=== PATIENT | male | born 1965 | race Caucasian/White ===

== ENCOUNTER 2017-04-28 10:50 | Emergency (ER) | payer MEDICAID, OTHER ==
[~2017-04-28] VITALS: Ht 177.8 cm; Wt 74.4 kg
[~2017-04-28 10:50] MED LIST: ARIP15TA5 PO; TRAZ-289; [UNRECOGNIZED DRUG - REMARK]
[2017-04-28 11:02] VITALS: BP 101/75
--- NOTE | 2017-04-28 11:07 | NUR ---
Patient ambulated to bed 05.
--- NOTE | 2017-04-28 11:10 | NUR ---
51M BIB SELF C/O INTERMITTENT LEFT UPPER QUADRANT PAIN, NON-RADIATING, 0/10 AT THIS TIME; PT STATES "I'VE BEEN HAVING THIS PAIN FOR A WHILE, IT COMES AND GOES, BUT IT DOESN'T HURT RIGHT NOW"; ABDOMEN SOFT, NON-TENDER, ACTIVE BOWEL SOUNDS X 4 QUADRANTS; PT DENIES N/V/D AT THIS TIME; PT A&OX4, PERRLA, BL LUNG SOUNDS CLEAR, RR EVEN/UNLABORED, SKIN IS WARM/DRY/INTACT AT THIS TIME; PT RESTING IN BED W/ HOB ELEVATED AND IN LOWEST POSITION; POSITIONED FOR COMFORT; ER MD MADE AWARE OF STATUS. WILL CONTINUE TO MONITOR.
[2017-04-28] MEDS ORDERED: KETOROLAC 60 MG/2 ML VIAL IM ONE ×2 (11:45→11:57)
--- NOTE | 2017-04-28 11:58 | NUR ---
Dr. Rojas evaluating patient at bedside.
[2017-04-28 12:11] VITALS: BP 101/69
--- NOTE | 2017-04-28 12:11 | NUR ---
Patient discharged with v/s stable. Written and verbal after care instructions given and explained. Patient alert, oriented and verbalized understanding of instructions. Ambulatory with steady gait. All questions addressed prior to discharge. ID band removed. Patient advised to follow up with PMD. Rx of PRILOSEC 40MG given. Patient educated on indication of medication including possible reaction and side effects. Opportunity to ask questions provided and answered. GIVEN PATIENT HOMELESS RESOURCE PACKET; PT REFUSED RESOURCES, STATES " I DON'T NEED IT. YOU CAN JUST THROW IT AWAY"; ANSWERED ALL QUESTIONS BY PT REGARDING RESOURCE PACKET; PT STILL REFUSED.
--- NOTE | 2017-04-28 12:11 | NUR ---
Note kristenjoce in EDM - 04/28/17 at 1214 by MEDSS Patient discharged with v/s stable. Written and verbal after care instructions given and explained. Patient alert, oriented and verbalized understanding of instructions. Ambulatory with steady gait. All questions addressed prior to discharge. ID band removed. Patient advised to follow up with PMD. Rx of PRILOSEC 40MG given. Patient educated on indication of medication including possible reaction and side effects. Opportunity to ask questions provided and answered.
== END 2017-04-28 12:11 | disposition home or self-care (01) ==
LOC: MED 10:50
DX: R10.13 Epigastric pain (principal); K21.9 Gastro-esophageal reflux disease without esophagitis; I10 Essential (primary) hypertension; J44.9 Chronic obstructive pulmonary disease, unspecified; F17.200 Nicotine dependence, unspecified, uncomplicated
CPT/HCPCS: 96372; 99283; J1885

== ENCOUNTER 2017-12-04 16:51 | Emergency (ER) | payer OTHER, MEDICAID ==
[~2017-12-04] VITALS: Ht 175.3 cm; Wt 63.5 kg
[2017-12-04 17:21] VITALS: BP 83/49
--- NOTE | 2017-12-04 17:27 | NUR ---
BP RECHECK 88/50 ERMD MADE AWARE.
--- NOTE | 2017-12-04 17:30 | NUR ---
PATIENT BIBA DUE TO ABD. PAIN BUT ALREADY RESOLVED. PATIENT JUST HUNGRY. NO OTHER SYMPTOMS.VS FIELD BP 108/70,97% POX,HR 84,RESP. 16. DENIES HX: . DENIES N/V/D; SKIN IS PINK/WARM/DRY; AAOX4 WITH EVEN AND STEADY GAIT; LUNGS CLEAR BL; HR EVEN AND REGULAR; PT DENIES ANY FEVER, CP, SOB, OR COUGH AT THIS TIME; PATIENT STATES PAIN OF 0/10 AT THIS TIME;PATIENT POSITIONED FOR COMFORT; HOB ELEVATED; BEDRAILS UP X2; BED DOWN. ER MD MADE AWARE OF PT STATUS.
--- NOTE | 2017-12-04 18:30 | NUR ---
PT ATE 100 % OF HIS FOOD
[2017-12-04 19:29] VITALS: BP 88/50
--- NOTE | 2017-12-04 19:29 | NUR ---
REPORT GIVEN TO BESSY YA.
--- NOTE | 2017-12-04 20:55 | NUR ---
PATIENT LEFT WITHOUT BEING SEEN BY DR. LEWIS. NO FURTHER CARE PROVIDED FOR PATIENT.
== END 2017-12-04 20:55 | disposition left against medical advice (07) ==
LOC: MED 16:51
DX: R10.9 Unspecified abdominal pain (principal); Z53.21 Procedure and treatment not carried out due to patient leaving prior to being seen by health care provider

== ENCOUNTER 2017-12-05 01:35 | Emergency (ER) | payer OTHER, MEDICAID ==
[~2017-12-05] VITALS: Ht 175.3 cm; Wt 73.3 kg
[2017-12-05 01:41] VITALS: BP 110/75
--- NOTE | 2017-12-05 02:07 | NUR ---
52/M CAME IN W C/O "IM HUNGRY". DENIES N/V/D; SKIN IS PINK/WARM/DRY; AAOX4 WITH EVEN AND STEADY GAIT; LUNGS CLEAR BL; HR EVEN AND REGULAR; PT DENIES ANY FEVER, CP, SOB, OR COUGH AT THIS TIME; PATIENT STATES PAIN OF 0/10 AT THIS TIME; VSS; PATIENT POSITIONED FOR COMFORT; HOB ELEVATED; BEDRAILS UP X2; BED DOWN. ER MD MADE AWARE OF PT STATUS.
--- NOTE | 2017-12-05 02:07 | NUR ---
PT AMBULATED TO ER BED 11
--- NOTE | 2017-12-05 02:15 | NUR ---
PT GIVEN FOOD
--- NOTE | 2017-12-05 02:30 | NUR ---
PATIENT LEFT WITHOUT BEING SEEN BY DR. HACKETT. NO FURTHER CARE PROVIDED FOR PATIENT.
== END 2017-12-05 02:30 | disposition left against medical advice (07) ==
LOC: MED 01:35
DX: Z53.21 Procedure and treatment not carried out due to patient leaving prior to being seen by health care provider (principal)

== ENCOUNTER 2019-04-27 21:16 | Emergency (ER) | payer OTHER, MEDICAID ==
[~2019-04-27] VITALS: Ht 177.8 cm; Wt 72.6 kg
[~2019-04-27 21:16] MED LIST changes: -TRAZ-289; +TRAZ100T99
[2019-04-27 21:18] VITALS: BP 121/83
--- NOTE | 2019-04-27 21:18 | NUR ---
2109-- PT BIBA BLS TO ER BED 2
--- NOTE | 2019-04-27 21:19 | NUR ---
53 Y/O M BIBA WITH C/O GENERALIZED ABDOMINAL AND CHEST PAIN. AAOX4. 10 PAIN, INTERMINTENT. PT UNABLE TO GIVE EXACT LOCATION OF PAIN. PT STATED "ABDOMINAL PAIN HAS GONE ON FOR 2 YEARS." BOWEL SOUNDS PRESENT AND NORMOACTIVE. NO TENDERNESS TO TOUCH. BEDRAILS X2 UP. HOB ELEVATED FOR COMFORT. ERMD NOTIFIED. WILL CONTINUE TO TONY. Addendum: 04/27/19 at 2139 by [facility] 53 Y/O M BIBA WITH C/O GENERALIZED ABDOMINAL AND CHEST PAIN. AAOX4. 10 PAIN, INTERMINTENT. PT UNABLE TO GIVE EXACT LOCATION OF PAIN. PT STATED "ABDOMINAL PAIN HAS GONE ON FOR 2 YEARS." PT REPORTED TO EMS "HALF OF MY STOMACH HAS BEEN REMOVED AND I HAVE ULCERS FROM SWALLOWING METH." BOWEL SOUNDS PRESENT AND NORMOACTIVE. NO TENDERNESS TO TOUCH. BEDRAILS X2 UP. HOB ELEVATED FOR COMFORT. ERMD NOTIFIED. WILL CONTINUE TO RODOLFOIOR.
[2019-04-27] MEDS ORDERED: DICYCLOMINE HCL LIQUID 20 MG, ALUMINUM HYD/MAG/SIMETHICONE 30 ML, LIDOCAINE VISCOUS 2% ... PO ONE ×3 (21:30)
[2019-04-27] MEDS ORDERED: KETOROLAC 30 MG/ML VIAL IVP ONE (22:05)
[2019-04-27] MEDS ORDERED: NACL 0.9% 1,000 ML IV ONE (22:05)
[2019-04-27] MEDS ORDERED: ONDANSETRON 4 MG/2 ML VIAL IVP ONE (22:05)
[2019-04-27 22:30] LABS: BASOPHILS # (AUTO) 0.1 K/uL (0.00-0.22); BASOPHILS % (AUTO) 0.9 % (0.0-2.0); EOSINOPHILS # (AUTO) 0.1 K/uL (0-0.4); HEMATOCRIT 38.8 % (36-52); HEMOGLOBIN 12.2 g/dL (12.0-18.0); LYMPHOCYTES # (AUTO) 1.9 K/uL (2.0-11.5); LYMPHOCYTES % (AUTO) 14.7 % (20.5-51.1); MEAN CORPUSCULAR HEMOGLOBIN 23 pg (27-31); MEAN CORPUSCULAR HGB CONC 31 g/dL (33-37); MEAN CORPUSCULAR VOLUME 73.2 fL (80-94); MONOCYTES # (AUTO) 1.4 K/uL (0.8-1.0); MONOCYTES % (AUTO) 10.6 % (1.7-9.3); NEUTROPHILS # (AUTO) 9.6 K/uL (1.8-7.7); NEUTROPHILS % (AUTO) 72.8 % (42.2-75.2); PLATELET COUNT (AUTO) 202 K/uL (140-450); RED CELL DISTRIBUTION WIDTH 21.3 % (11.6-13.7); WHITE BLOOD COUNT (AUTO) 13.1 K/uL (4.8-10.8)
--- NOTE | 2019-04-27 22:30 | NUR ---
Pt awake. VSS. will continue to monitor.
[2019-04-27 22:39] LABS: ANION GAP 9.5 (8-16); CARBON DIOXIDE 35.9 mmol/L (21-32); CREATININE 1.1 mg/dL (0.7-1.3); POTASSIUM 3.4 mmol/L (3.5-5.1)
[2019-04-27 22:45] VITALS: BP 126/85
[2019-04-27 22:48] LABS: ALBUMIN 3.9 g/dL (3.4-5.0); TOTAL BILIRUBIN 0.2 mg/dL (0.0-1.0)
--- NOTE | 2019-04-27 23:30 | NUR ---
Pt provided meal and homeless resource packet.
--- NOTE | 2019-04-27 23:40 | NUR ---
Patient discharged with v/s stable. Written and verbal after care instructions given and explained. Patient alert, oriented and verbalized understanding of instructions. Ambulatory with steady gait. All questions addressed prior to discharge. ID band removed. Patient advised to follow up with PMD. Rx of Prilosec, zofran, and motrin given. Patient educated on indication of medication including possible reaction and side effects. Opportunity to ask questions provided and answered.
== END 2019-04-27 23:40 | disposition home or self-care (01) ==
LOC: MED 21:16
DX: R07.89 Other chest pain (principal); R10.9 Unspecified abdominal pain; R11.2 Nausea with vomiting, unspecified; F20.0 Paranoid schizophrenia; F17.200 Nicotine dependence, unspecified, uncomplicated; Z88.5 Allergy status to narcotic agent
CPT/HCPCS: 36415; 80053; 81002; 83690; 84484; 85025; 93005; 96361; 96374; 96375; 99284; J1885; J2405; J7030

== ENCOUNTER 2019-04-28 14:05 | Emergency (ER) | payer OTHER ==
[~2019-04-28] VITALS: Ht 175.3 cm; Wt 72.6 kg
[2019-04-28 14:09] VITALS: BP 118/80
--- NOTE | 2019-04-28 14:13 | NUR ---
Note undone in EDM - 04/28/19 at 1449 by [email or web address] 53/M HOMELESS . BIBA C/O OF N/V & EPIGASTRIC PAIN AT 09/06, PT UNABLE TO DESCRIBE QUALITY OF PAIN, WHEN ASKED FOR HOW LONG PT STATED "FOR A HELL OF A LONG TIME". + N/V. OR SEEN HERE & DISCHRGE LAST NIGHT SAME S/S. ABD : SOFT. PATIENT POSITIONED FOR COMFORT; HOB ELEVATED; BEDRAILS UP X2; BED DOWN. ER MD MADE AWARE OF PT STATUS.
--- NOTE | 2019-04-28 14:13 | NUR ---
53/M HOMELESS . BIBA C/O OF N/V & EPIGASTRIC PAIN AT 09/06, PT UNABLE TO DESCRIBE QUALITY OF PAIN, WHEN ASKED FOR HOW LONG PT STATED "FOR A HELL OF A LONG TIME". + N/V. SEEN HERE & DISCHRGE LAST NIGHT SAME S/S. ABD : SOFT. PATIENT POSITIONED FOR COMFORT; HOB ELEVATED; BEDRAILS UP X2; BED DOWN. ER MD MADE AWARE OF PT STATUS.
[2019-04-28] MEDS ORDERED: NACL 0.9% 1,000 ML IV ONE (14:20)
--- NOTE | 2019-04-28 14:54 | NUR ---
X RAY AT BEDSIDE.
[2019-04-28 15:05] LABS: BARBITURATE, URINE NEG. ng/ml (NEG <=200); BENZODIAZEPINE, URINE NEG. ng/mL (NEG <=200); CANNABINOID, URINE NEG. ng/mL (NEG <=50); COCAINE, URINE NEG. ng/mL (NEG <=300); OPIATE, URINE NEG. ng/mL (NEG <=2000); PHENCYCLIDINE SCREEN,URINE NEG. ng/mL (NEG <=25)
[2019-04-28 15:05] LABS: PROTHROMBIN TIME 10.4 secs (10.8-13.4)
[2019-04-28 15:09] LABS: ACETAMINOPHEN < 0.5 ug/ml (10-30); ALBUMIN 3.4 g/dL (3.4-5.0); ANION GAP 7.8 (8-16); ASPARTATE AMINOTRANSFERASE 28 U/L (15-37); CARBON DIOXIDE 35.6 mmol/L (21-32); CHLORIDE 95 mmol/L (98-107); CREATININE 1.1 mg/dL (0.7-1.3); GFR ARICAN-AMERICAN 90 mL/min (>90); GLUCOSE 136 mg/dL (74-106); POTASSIUM 3.4 mmol/L (3.5-5.1); SALICYLATE < 2.8 mg/dL (2.8-20.0); SODIUM SERUM 135 mmol/L (136-145); TOTAL BILIRUBIN 0.3 mg/dL (0.0-1.0); UREA NITROGEN, BLOOD 26 mg/dL (7-18)
[2019-04-28 15:14] LABS: BASOPHILS % (AUTO) 0.2 % (0.0-2.0); EOSINOPHILS # (AUTO) 0.2 K/uL (0-0.4); EOSINOPHILS % (AUTO) 1.1 % (0.0-4.0); HEMATOCRIT 35.1 % (36-52); HEMOGLOBIN 10.9 g/dL (12.0-18.0); LYMPHOCYTES # (AUTO) 2.2 K/uL (2.0-11.5); LYMPHOCYTES % (AUTO) 15.2 % (20.5-51.1); MEAN CORPUSCULAR HEMOGLOBIN 23 pg (27-31); MEAN CORPUSCULAR HGB CONC 31 g/dL (33-37); MEAN CORPUSCULAR VOLUME 73.2 fL (80-94); MONOCYTES # (AUTO) 1.8 K/uL (0.8-1.0); MONOCYTES % (AUTO) 12.6 % (1.7-9.3); NEUTROPHILS # (AUTO) 10.3 K/uL (1.8-7.7); NEUTROPHILS % (AUTO) 70.9 % (42.2-75.2); PLATELET COUNT (AUTO) 230 K/uL (140-450); RED BLOOD CELL COUNT(AUTO) 4.79 MIL/uL (4.20-6.10); RED CELL DISTRIBUTION WIDTH 20.3 % (11.6-13.7); WHITE BLOOD COUNT (AUTO) 14.6 K/uL (4.8-10.8)
[2019-04-28 15:43] VITALS: BP 99/63
--- NOTE | 2019-04-28 15:43 | NUR ---
Patient given written and verbal discharge instructions and verbalizes understanding. Given copies of tests performed during visit. Patient is awake, alert and oriented. Ambulatory with steady gait. Refuses offer of retirement placement. Given list of available shelters in surrounding areas.
--- NOTE | 2019-04-28 15:43 | NUR ---
Kenyatta yang in ED - 04/28/19 at 1545 by [facility] Patient discharged with v/s stable. Written and verbal after care instructions given and explained. Patient verbalized understanding. Ambulatory with steady gait. All questions addressed prior to discharge. Advised to follow up with PMD.
== END 2019-04-28 15:43 | disposition home or self-care (01) ==
LOC: MED 14:05
DX: R05 Cough (principal); R07.9 Chest pain, unspecified; R10.13 Epigastric pain; R11.2 Nausea with vomiting, unspecified; F20.9 Schizophrenia, unspecified; F17.200 Nicotine dependence, unspecified, uncomplicated; Z88.8 Allergy status to other drugs, medicaments and biological substances; Z98.890 Other specified postprocedural states
CPT/HCPCS: 36415; 71045; 80053; 80305; 84484; 85025; 85610; 85730; 96360; 99284; G0480; G0482; J7030; Q0092; 93005

== ENCOUNTER 2019-06-19 16:08 | Emergency (ER) | payer OTHER ==
[~2019-06-19] VITALS: Ht 177.8 cm; Wt 62.8 kg
--- NOTE | 2019-06-19 16:29 | NUR ---
NO ANSWER FROM PT. NOT IN LOBBY.
--- NOTE | 2019-06-19 16:38 | NUR ---
PT WAS OUTSIDE LOOKING FOR A CIGARETTE. BACK IN ED NOW.
[2019-06-19 16:40] VITALS: BP 133/66
--- NOTE | 2019-06-19 16:57 | NUR ---
PT WALKED OUT OF ED WITH STEADY GAIT.
--- NOTE | 2019-06-19 17:44 | NUR ---
PT CALLED FOR ROOM, NO RESPONSE AT THIS TIME
== END 2019-06-19 17:44 | disposition left against medical advice (07) ==
LOC: MED 16:08
DX: E11.9 Type 2 diabetes mellitus without complications (principal); Z76.0 Encounter for issue of repeat prescription; Z79.4 Long term (current) use of insulin; Z53.21 Procedure and treatment not carried out due to patient leaving prior to being seen by health care provider

== ENCOUNTER 2019-06-20 02:38 | Inpatient (IN) | payer OTHER ==
[~2019-06-20] VITALS: Ht 167.6 cm; Wt 54.4 kg
--- NOTE | 2019-06-20 02:39 | NUR ---
PT [facility] BLS. TAKEN TO BED 2
[2019-06-20 02:46] VITALS: BP 122/75
[2019-06-20] MEDS ORDERED: NACL 0.9% 500 ML IV SCH (02:48)
--- NOTE | 2019-06-20 02:50 | NUR ---
53 Y/O BIB[place] [facility] WITH C/O N/V AND ABDOMINAL PAIN. PER EMS PT VOMITED ON SCENE. PT IS AAOX4. SPEECH MUMBLED AND EXCESSIVE. SPEECH NOT RELATE TO QUESTIONS BEING ASKED. PER PT "HAS SCHIZOPHRENIA BUT DOES NOT TAKE MEDICATION." GENERALIZED ABDOMINAL PAIN, 8/10 AN ACHING. ABDOMEN NON-TENDER. BOWEL SOUNDS PRESENT X4 QUADRANTS. ERMD NOTIFIED. WILL CONTINUE TO MONITOR.
--- NOTE | 2019-06-20 03:11 | NUR ---
EKG PERFORMED AT BEDSIDE
--- NOTE | 2019-06-20 03:15 | NUR ---
UNABLE TO OBTAIN IV ACCESS AT THIS TIME. DR. QUICK NOTIFIED.
[2019-06-20] MEDS ORDERED: LORazepam 2 MG/ML VIAL IVP ONE (03:20)
[2019-06-20 03:30] LABS: ALBUMIN 2.8 g/dL (3.4-5.0); ANION GAP 7.1 (8-16); CREATININE 0.7 mg/dL (0.7-1.3); POTASSIUM 3.1 mmol/L (3.5-5.1); TOTAL BILIRUBIN 0.4 mg/dL (0.0-1.0)
--- NOTE | 2019-06-20 03:30 | NUR ---
PT TAKEN TO CT.
[2019-06-20 03:33] LABS: ACETAMINOPHEN < 0.5 ug/ml (10-30); SALICYLATE < 2.8 mg/dL (2.8-20.0)
[2019-06-20 03:34] LABS: PROTHROMBIN TIME 10.2 secs (10.8-13.4)
[2019-06-20] MEDS ORDERED: POTASSIUM CHLORIDE 10 MEQ TABER PO ONE (03:40)
--- NOTE | 2019-06-20 03:50 | NUR ---
PT UNABLE TO PROVIDE URINE SAMPLE. PO FLUIDS GIVEN.
[2019-06-20 04:05] LABS: BASOPHILS # (AUTO) 0.1 K/uL (0.00-0.22); EOSINOPHILS # (AUTO) 0.1 K/uL (0-0.4); EOSINOPHILS % (AUTO) 1.1 % (0.0-4.0); HEMATOCRIT 35.2 % (36-52); HEMOGLOBIN 11.2 g/dL (12.0-18.0); LYMPHOCYTES # (AUTO) 1.6 K/uL (2.0-11.5); LYMPHOCYTES % (AUTO) 21.3 % (20.5-51.1); MEAN CORPUSCULAR HEMOGLOBIN 25 pg (27-31); MEAN CORPUSCULAR HGB CONC 32 g/dL (33-37); MEAN CORPUSCULAR VOLUME 79.3 fL (80-94); MONOCYTES # (AUTO) 0.6 K/uL (0.8-1.0); MONOCYTES % (AUTO) 8.4 % (1.7-9.3); NEUTROPHILS # (AUTO) 5.2 K/uL (1.8-7.7); NEUTROPHILS % (AUTO) 68.2 % (42.2-75.2); PLATELET COUNT (AUTO) 449 K/uL (140-450); RED BLOOD CELL COUNT(AUTO) 4.44 MIL/uL (4.20-6.10); WHITE BLOOD COUNT (AUTO) 7.6 K/uL (4.8-10.8)
--- NOTE | 2019-06-20 04:30 | NUR ---
PT ASLEEP. VISIBLE CHEST RISE AND FALL. WILL CONTINUE TO MONITOR.
[2019-06-20] MEDS ORDERED: metroNIDAZOLE 500 MG/NS PREMIX 100 ML IV ONE (04:40)
[2019-06-20] MEDS ORDERED: DOCUSATE SODIUM 100 MG GELCAP PO PRN (04:45)
[2019-06-20] MEDS ORDERED: KETOROLAC 15 MG/ML VIAL IVP PRN (04:45)
[2019-06-20] MEDS ORDERED: ACETAMINOPHEN 325 MG TAB PO PRN (04:45)
[2019-06-20] MEDS ORDERED: ONDANSETRON 4 MG/2 ML VIAL IM/IVP PRN (04:45)
[2019-06-20 04:48] LABS: APPEARANCE,URINE CLOUDY (CLEAR); BILIRUBIN,URINE NEGATIVE (NEGATIVE); BLOOD, URINE NEGATIVE (NEGATIVE); COLOR,URINE YELLOW (YELLOW); LEUKOCYTE ESTERASE ,URINE NEGATIVE (NEGATIVE); NITRITE, URINE NEGATIVE (NEGATIVE); PH,URINE 8.5 (5.0-9.0); UGLUCOSE NEGATIVE (NEGATIVE)
--- NOTE | 2019-06-20 04:50 | NUR ---
PT PROVIDED URINE SAMPLE. TAKEN TO LAB.
[2019-06-20 04:56] LABS: BARBITURATE, URINE NEG. ng/ml (NEG <=200); BENZODIAZEPINE, URINE NEG. ng/mL (NEG <=200); CANNABINOID, URINE NEG. ng/mL (NEG <=50); COCAINE, URINE NEG. ng/mL (NEG <=300); OPIATE, URINE NEG. ng/mL (NEG <=2000); PHENCYCLIDINE SCREEN,URINE NEG. ng/mL (NEG <=25)
[2019-06-20] MEDS ORDERED: NACL 0.9% 1,000 ML IV SCH (05:00)
[2019-06-20] MEDS ORDERED: cefTRIAXone 1,000 MG VIAL ONE (05:05)
[2019-06-20 05:20] VITALS: BP 115/84
--- NOTE | 2019-06-20 05:20 | NUR ---
RECEIVED REPORT FROM ER NURSE. PATIENT IS AWAKE,ALERT, AND COOPERATIVE. ADMITTING DIAGNOSIS ABDOMINAL PERFORATION. COMPLAINS OF ABDOMINAL PAIN 10/10. RESPIRATION EVEN UNLABORED ON ROOM AIR. NO DISTRESS NOTED. SKIN IS WARM AND DRY. IV PATENT AND INTACT. LUNG SOUNDS CLEAR. ABDOMEN SOFT AND TENDER. BOWEL SOUNDS PRESENT IN ALL QUADRANTS. LAST BM 06/18/19. VITALS WERE TAKEN. MRSA SCREEN DONE. ORIENT PATIENT TO ROOM, STAFF, AND CALL LIGHT. PLAN OF CARE WAS DISCUSSED. ALL SAFETY MEASURES IN PLACE. BED AT LOW POSITION. CALL LIGHT WITHIN REACH AND VERBALIZES ITS USE. WILL CONTINUE TO MONITOR.
--- NOTE | 2019-06-20 05:25 | NUR ---
Patient will be admitted to care of Dr. Mae. Admited to telemetry. Will go to room 125B. Belongings list completed. Report to BESSY De Souza. Transfer of care at this time.
[2019-06-20] MEDS: MORPHINE SULFATE 2 MG/ML SYR IVP PRN ×2 (05:40→13:57)
--- NOTE | 2019-06-20 05:40 | NUR ---
PATIENT COMPLAINING OF ABDOMINAL PAIN 09/06. ADMINISTERED MORPHINE 1GM PER ORDER. WILL MONITOR FOR EFFECTIVENESS.
--- NOTE | 2019-06-20 06:24 | NUR ---
PATIENT SLEEPING RESPIRATION EVEN UNLABORED ON ROOM AIR. NO DISTRESS NOTED. WILL CONTINUE TO MONITOR.
--- NOTE | 2019-06-20 06:43 | NUR ---
PATIENT REFUSED FOR KUB PROCEDURE. EDUCATE THE RISK AND BENEFITS X2 STILL REFUSED. TECH WILL COME BACK AGAIN LATER TO TRY IT AGAIN.
[2019-06-20 06:46] LABS: CHOL/HDL RATIO 2.4 (1-4.5); MAGNESIUM 2.2 mg/dL (1.8-2.4); PHOSPHORUS 3.5 mg/dL (2.5-4.9); THYROID STIMULATING HORMONE 0.8 uIU/mL (0.34-3.74)
--- NOTE | 2019-06-20 07:22 | NUR ---
ENDORSED PATIENT TO DAY SHIFT FOR CONTINUITY OF CARE. PATIENT IN STABLE CONDITION.
--- NOTE | 2019-06-20 07:25 | NUR ---
RECEIVED REPORT FROM RECORD FILING CLERK NURSE. PT IS LAYING DOWN, VITAL SIGNS WNL. PT IS C/O OF PAIN. NOTIFIED PT THAT THE NEXT DOSE CANT BE GIVEN UNTIL 0940. WILL CONTINUE TO MONITOR AND ADMINISTER WITHIN TIME FRAME.
[2019-06-20 07:41] VITALS: BP 105/69
--- NOTE | 2019-06-20 08:13 | NUR ---
DR. COELLO AND THE RESIDENT DOCTORS CAME TO PT'S ROOM AND SPOKE TO PT REGARDING POC AND PT VERBALIZED UNDERSTANDING, DR. COELLO ASSESSING PT WELL, PALPATING ABDOMEN.
--- NOTE | 2019-06-20 08:42 | NUR ---
PATIENT HAS BEEN SCREENED AND CATEGORIZED MODERATE NUTRITION RISK. PATIENT WILL BE SEEN WITHIN 3-5 DAYS OF ADMISSION. 06/22/19 06/24/[address]
[2019-06-20 08:50] LABS: BASOPHILS # (AUTO) 0.1 K/uL (0.00-0.22); BASOPHILS % (AUTO) 1.2 % (0.0-2.0); EOSINOPHILS # (AUTO) 0.1 K/uL (0-0.4); EOSINOPHILS % (AUTO) 1.2 % (0.0-4.0); HEMATOCRIT 29.8 % (36-52); HEMOGLOBIN 9.5 g/dL (12.0-18.0); LYMPHOCYTES # (AUTO) 1.3 K/uL (2.0-11.5); LYMPHOCYTES % (AUTO) 20.4 % (20.5-51.1); MEAN CORPUSCULAR HEMOGLOBIN 25 pg (27-31); MEAN CORPUSCULAR HGB CONC 32 g/dL (33-37); MEAN CORPUSCULAR VOLUME 79.3 fL (80-94); MONOCYTES # (AUTO) 0.6 K/uL (0.8-1.0); MONOCYTES % (AUTO) 8.9 % (1.7-9.3); NEUTROPHILS # (AUTO) 4.5 K/uL (1.8-7.7); NEUTROPHILS % (AUTO) 68.3 % (42.2-75.2); PLATELET COUNT (AUTO) 382 K/uL (140-450); RED BLOOD CELL COUNT(AUTO) 3.75 MIL/uL (4.20-6.10); RED CELL DISTRIBUTION WIDTH 21.9 % (11.6-13.7); WHITE BLOOD COUNT (AUTO) 6.6 K/uL (4.8-10.8)
[2019-06-20] MEDS ORDERED: MORPHINE SULFATE 2 MG/ML SYR IVP SCH (09:00)
[2019-06-20 09:12] LABS: ALBUMIN 2.1 g/dL (3.4-5.0); ANION GAP 6.5 (8-16); CARBON DIOXIDE 29.8 mmol/L (21-32); CREATININE 0.6 mg/dL (0.7-1.3); POTASSIUM 3.3 mmol/L (3.5-5.1); TOTAL BILIRUBIN 0.3 mg/dL (0.0-1.0)
--- NOTE | 2019-06-20 09:50 | NUR ---
INSERTED 16FR NG TUBE TO RIGHT NARE WITH THE ASSISTANCE OF BESSY MARTIN. PT TOLERATED WELL. CHECKED FOR PLACEMENT VIA AIR. NOTIFIED MD TO PUT IN AN ORDER FOR CXR. WILL CONTINUE TO MONITOR.
--- NOTE | 2019-06-20 10:10 | NUR ---
X-RAY IS BEING DONE TO PT NOW TO CHECK PLACEMENT OF NG TUBE PLACEMENT.
--- NOTE | 2019-06-20 10:16 | NUR ---
PT IS OFF THE UNIT NOW FOR A CT.
--- NOTE | 2019-06-20 10:30 | NUR ---
CM ATTEMPTED TO MEET WITH THE PATIENT. PATIENT IS IN CT AT THIS TIME. WILL FOLLOW UP.
[2019-06-20] MEDS ORDERED: SODIUM FERRIC GLUCONATE 125 MG in NACL 0.9% 100 ML IV SCH (11:00)
[2019-06-20 12:00] VITALS: BP 115/81
[2019-06-20] MEDS ORDERED: BISACODYL 10 MG SUPP RC SCH (12:00)
--- NOTE | 2019-06-20 12:49 | NUR ---
ASSISTED PATIENT WITH STANDBY AMBULATION TO USE THE RESTROOM. PT STATED TO HAVING A BOWEL MOVEMENT X2. PT TOLERATED WELL, NO DIZZINESS OBSERVED.
[2019-06-20] MEDS ORDERED: metroNIDAZOLE 500 MG/NS PREMIX 100 ML IV SCH (13:00)
[2019-06-20] MEDS ORDERED: POTASSIUM CHLORIDE 40 MEQ, LIDOCAINE MPF 1% - 5 mL VIAL 25 MG in NACL 0.9% 250 ML IV SCH (13:30)
--- NOTE | 2019-06-20 13:50 | NUR ---
ADMINISTERED MORPHINE PER MD ORDER, BP WAS STABLE (122/80).
--- NOTE | 2019-06-20 14:12 | NUR ---
PATIENT IS REFUSING SCHEDULED FLAGYL AND IS REQUESTING NG TUBE TO BE REMOVED. PT STATES HE WANTS TO LEAVE AMA. MADE AWARE.
--- NOTE | 2019-06-20 14:30 | NUR ---
PATIENT VERBALIZED THAT HE WANTED TO LEAVE THE HOSPITAL TO SMOKE. PATIENT WAS INFORMED THAT THIS IS NOT AN OPTION. MD SEVILLA SPOKE WITH PATIENT AND EDUCATED HIM ON HIS CONSEQUENCES IF HE LEFT THE HOSPITAL AND OFFERED HIM A NICOTINE PATCH. PATIENT REFUSED THE NICOTINE PATCH AND CONTINUED TO VERBALIZE THAT HE WANTED TO LEAVE. DR COREY CAME IN AFTER TO SPEAK TO PATIENT AND EDUCATE HIM FURTHER ON CONSEQUENCES OF LEAVING. PATIENT STILL REFUSED.
--- NOTE | 2019-06-20 15:00 | NUR ---
CM ATTEMPTED TO MEET WITH PATIENT AT THE BEDSIDE TO GATHER INFORMATION. PER PRIMARY RN, PATIENT ELOPED.
--- NOTE | 2019-06-20 15:00 | NUR ---
PATIENT PULLED OUT HIS OWN NG TUBE. PERIPHERAL IV WAS DISCONTINUED, TIP INTACT. PATIENT DRESSED INTO CLOTHING AND PROCEEDED TO [place]OPE, LEAVING THE UNIT. NOTIFIED SECURITY, CHARGE NURSE, AND INTERNET MARKETING DIRECTOR OF THE INCIDENT. MD MADE AWARE AND WAS AT BEDSIDE.
[2019-06-21] MEDS ORDERED: PANTOPRAZOLE 40 MG INJ VIAL IVP SCH (09:00)
[2019-06-21] MEDS ORDERED: DOCUSATE SODIUM 100 MG GELCAP PO SCH (09:00)
== END 2019-06-20 15:00 | disposition left against medical advice (07) | DRG 383 ==
LOC: MED 02:38 → MMU 04:47
PROVIDERS: ADMIT Family Medicine; ATTEND Family Medicine
DX: K26.9 Duodenal ulcer, unspecified as acute or chronic, without hemorrhage or perforation (principal); E43 Unspecified severe protein-calorie malnutrition; Z68.1 Body mass index [BMI] 19.9 or less, adult; E87.6 Hypokalemia; E11.9 Type 2 diabetes mellitus without complications; F17.210 Nicotine dependence, cigarettes, uncomplicated; F15.90 Other stimulant use, unspecified, uncomplicated; D50.9 Iron deficiency anemia, unspecified; Z53.21 Procedure and treatment not carried out due to patient leaving prior to being seen by health care provider; Z59.0 Homelessness; Z88.8 Allergy status to other drugs, medicaments and biological substances; Z85.028 Personal history of other malignant neoplasm of stomach; Z90.3 Acquired absence of stomach [part of]
CPT/HCPCS: 36415; 71045; 74018; 80053; 80305; 81003; 83540; 83605; 83690; 83735; 84100; 84443; 84484; 85025; 85610; 85730; 87040; 87081; 93005; 96365; 96375; 99285; G0480; G0482; J0696; J2001; J2270; J2916; J3480; J3490; J7030; J7060; Q0092; Q9967

== ENCOUNTER 2019-06-21 00:47 | Emergency (ER) | payer OTHER ==
[~2019-06-21] VITALS: Ht 177.8 cm; Wt 64.0 kg
--- NOTE | 2019-06-21 01:10 | NUR ---
PT WAS OUT SMOKING, DID NOT WANT TO COME IN WHEN CALLED FROM LOBBY.
--- NOTE | 2019-06-21 01:15 | NUR ---
PT WAS CALLED NO ANSWER, LWBS
--- NOTE | 2019-06-21 01:15 | NUR ---
Kenyatta yang in ED - 06/21/19 at 0328 by [email or web address] PATIENT LEFT WITHOUT BEING SEEN BY DR. QUICK. NO FURTHER CARE PROVIDED FOR PATIENT.
[2019-06-21 01:45] VITALS: BP 105/63
--- NOTE | 2019-06-21 01:48 | NUR ---
PT CAME BACK TO LOBBY, WOULD LIKE TO BE SEEN BY ER MD. PT WILL BE TRIAGED.
--- NOTE | 2019-06-21 01:50 | NUR ---
AMINATAD SEEN PT IN TRIAGE.
--- NOTE | 2019-06-21 02:03 | NUR ---
Patient discharged with v/s stable. Written and verbal after care instructions given and explained. Patient verbalized understanding. Ambulatory with steady gait. All questions addressed prior to discharge. Advised to follow up with PMD. Pt left discharge paperwork.
== END 2019-06-21 02:03 | disposition home or self-care (01) ==
LOC: MED 00:47
DX: R10.9 Unspecified abdominal pain (principal); E11.9 Type 2 diabetes mellitus without complications; F17.210 Nicotine dependence, cigarettes, uncomplicated; Z85.00 Personal history of malignant neoplasm of unspecified digestive organ; Z88.5 Allergy status to narcotic agent
CPT/HCPCS: 99281